=== PATIENT | female | born 1955 | race Caucasian/White ===

== ENCOUNTER 2022-01-03 18:05 | Outpatient (CLI) | payer MEDICAID, SELFPAY ==
--- NOTE | 2022-01-03 | XRR_ITS ---
PROCEDURE INFORMATION: Exam: XR Chest Exam date and time: 01/03/2022 6:14 PM Age: 66 years old Clinical indication: Patient HX: PT C/O shortness of breath and chest pain; Additional info: Shortness of breath, chest pain TECHNIQUE: Imaging protocol: Radiologic exam of the chest. Views: 2 views. COMPARISON: CR Chest 2 views* [id number] 10/28/2016 12:44 PM FINDINGS: Lungs: The lung parenchyma is clear. Pleural spaces: No pneumothorax. No pleural effusion. Heart/Mediastinum: The cardiomediastinal silhouette is within normal limits. Bones/joints: Unremarkable. XR/XR chest 2V* [id number] IMPRESSION: No acute cardiopulmonary abnormality.
== END 2022-01-03 18:06 | disposition home or self-care (01) ==
PROVIDERS: Family Provider Physician Assistant; Visit Provider Family Medicine
DX: R06.02 Shortness of breath (principal); R07.9 Chest pain, unspecified
CPT/HCPCS: 71046

== ENCOUNTER → 2022-02-14 16:08 | Outpatient (BNVA) | payer MEDICAID, SELFPAY | PROVIDERS: Family Provider Physician Assistant; Visit Provider Family Medicine | DX: M25.561 Pain in right knee (principal); M25.562 Pain in left knee | CPT/HCPCS: 73562 ==

== ENCOUNTER → 2022-05-14 14:26 | Outpatient (BNVA) | payer MEDICAID, SELFPAY | PROVIDERS: PCP Family Medicine; Visit Provider Internal Medicine Cardiovascular Disease | DX: I49.3 Ventricular premature depolarization (principal); R00.2 Palpitations; I10 Essential (primary) hypertension | CPT/HCPCS: 93005; 93246; 99204; Q3014 ==

== ENCOUNTER → 2022-06-02 10:53 | Outpatient (BNVA) | payer MEDICAID, SELFPAY | PROVIDERS: Family Provider Physician Assistant; PCP Family Medicine; Visit Provider Specialist | DX: M25.511 Pain in right shoulder (principal); G89.29 Other chronic pain | CPT/HCPCS: 73030; 99204 ==

== ENCOUNTER 2022-07-10 11:28 | Outpatient (CLI) | payer MEDICAID, SELFPAY ==
--- NOTE | 2022-07-10 11:45 | MR_ITS ---
WS: [id number] EXAMINATION: MR shoulder RT wo con* [id number] ORDER DATE: 07/10/2022 11:37 AM COMPARISON: None. HISTORY: right shoulder pain CONTRAST: None. TECHNIQUE: Axial T2 STAR, coronal proton density fat sat, sagittal T2 fat sat, sagittal proton densit y fat sat, axial proton density fat sat, coronal T2 fat sat, and coronal T1 performed. After contrast , axial T1 fat sat, coronal T1 fat sat, and sagittal T1 fat sat were performed. FINDINGS: Exam is limited due to patient motion. Moderate degenerative arthritis AC joint with hypertrophic changes. Mild narrowing of the subacromial space. Slight subacromial spurring. Advanced arthritis glenohumeral joint with hypertrophic spurring . Fluid and edema the AC joint. Small amount of subacromial fluid. Small subcoracoid effusion. Distal supraspinatus is intact with mild thinning. Normal infraspinatus. Normal teres minor. Mild chr onic thinning of the subscapularis tendon which appears intact. Tiny biceps tendon within the bicipit al groove. Hypertrophic changes along the bicipital groove proximally. Chronic appearing irregularity of the glenoid labrum. Advanced narrowing at the glenohumeral articula tion. Normal bone marrow signal in the humerus and glenoid. MR/MR shoulder RT wo con* [id number] IMPRESSION: Some images degraded by patient motion. 1. Advanced degenerative arthritis at the AC joint with fluid and edema. Mild downsloping acromion. 2. Advanced degenerative arthritis glenohumeral joint with hypertrophic change s. Hypertrophic changes along the bicipital groove. 3. Mild chronic thinning of the distal supraspinatus and subscapularis. No hig h-grade rotator cuff tears. 4. Tiny biceps tendon within the bicipital groove. 5. Small subcoracoid effusion.
== END 2022-07-10 11:29 | disposition home or self-care (01) ==
PROVIDERS: PCP Family Medicine; Visit Provider Specialist
DX: S49.90XA Unspecified injury of shoulder and upper arm, unspecified arm, initial encounter (principal); M19.011 Primary osteoarthritis, right shoulder; X58.XXXA Exposure to other specified factors, initial encounter
CPT/HCPCS: 73221; 99204

== ENCOUNTER → 2022-07-22 09:19 | Outpatient (BNVA) | payer MEDICAID, SELFPAY | PROVIDERS: PCP Family Medicine; Visit Provider Internal Medicine Cardiovascular Disease | DX: R00.2 Palpitations (principal) | CPT/HCPCS: 93242 ==

== ENCOUNTER 2022-08-01 09:39 | Outpatient (CLI) | payer MEDICAID, SELFPAY ==
--- NOTE | 2022-08-01 11:00 | USCV_ITS ---
Jeimy Perry Age: 67 Gender: F : 1955 Exam Date: 08/01/2022 10:05 Ordering Phys: Ellen Gorman MD ([email or web address]) Technologist: [place] [facility] [place]: murmur sob BP: 145 / 80 HR: 61 Rhythm: Sinus Technical Quality: Adequate MEASUREMENTS (Male / Female) Normal Values 2D ECHO LV Diastolic Diameter PLAX 3.3 cm 4.2 - 5.9 / 3.9 - 5.3 cm LV Systolic Diameter PLAX 2.3 cm IVS Diastolic Thickness 1.1 cm 0.6 - 1.0 / 0.6 - 0.9 cm IVS Systolic Thickness 1.3 cm LVPW Diastolic Thickness 1.3 cm 0.6 - 1.0 / 0.6 - 0.9 cm LVPW Systolic Thickness 1.5 cm LVOT Diameter 2.0 cm LV Ejection Fraction 2D Teich 46.9 % LV Ejection Fraction MOD 2C 46.5 % LV Ejection Fraction 2C AL 46.5 % LA Diameter 3.3 cm IVC Diameter 1.8 cm M-MODE Aortic Annulus Diameter 3.0 cm LA Ao Ratio MM 1.3 MV E Point Septal Separation 1.8 cm DOPPLER AV Peak Velocity 160.0 cm/s LVOT Peak Velocity 124.0 cm/s AV Area Cont Eq vti 2.7 cm squared AV Area Cont Eq pk 2.4 cm squared MV Area PHT 5.0 cm squared Mitral E to A Ratio 0.9 MV E' Velocity 50.0 cm/s Mitral E to MV E' Ratio 8.6 Mitral E to LV E' Lateral Ratio 8.3 Mitral E to LV E' Septal Ratio 9.0 TR Peak Velocity 134.3 cm/s TR Peak Gradient 7.2 mmHg TV Peak E Velocity 79.0 cm/s Right Atrial Pressure 3.0 mmHg Pulmonary Artery Systolic Pressu 10.2 mmHg RV Acceleration Time 0.1 s FINDINGS Left Ventricle Left ventricle is normal size. LV systolic function is normal with EF of 50-55%. No regional wall motion abnormalities seen. Grade 1 diastolic dysfunction Right Ventricle Normal in size and function Right Atrium Normal in size Left Atrium Normal in size Mitral Valve Moderate mitral annular calcification. Trace mitral regurgitation. Aortic Valve Structurally normal aortic valve. No significant aortic stenosis or regurgitation is seen Tricuspid Valve Mild tricuspid regurgitation. Pulmonary artery systolic pressure is normal. Pulmonic Valve Not well visualized Pericardium Normal Aorta Normal in size IVC Appears to be normal CONCLUSIONS LV systolic function is normal with EF 50 to 55%. Grade 1 diastolic dysfunction Trace mitral regurgitation Mild tricuspid regurgitation No comparison studies are available. Adama Tafoya MD (Electronically Signed) Final Date: 14 August 2022 15:03 S
== END 2022-08-01 09:40 | disposition home or self-care (01) ==
LOC: RAD 09:44
PROVIDERS: PCP Family Medicine; Visit Provider Internal Medicine Cardiovascular Disease
DX: R01.1 Cardiac murmur, unspecified (principal); R06.02 Shortness of breath; I08.1 Rheumatic disorders of both mitral and tricuspid valves
CPT/HCPCS: 93306

== ENCOUNTER → 2022-09-09 12:52 | Outpatient (BNVA) | payer MEDICAID, SELFPAY | PROVIDERS: PCP Family Medicine; Visit Provider Nurse Practitioner Family | DX: I10 Essential (primary) hypertension (principal); I49.3 Ventricular premature depolarization | CPT/HCPCS: 99214 ==

== ENCOUNTER → 2023-03-16 10:06 | Outpatient (BNVA) | payer MEDICAID, SELFPAY | PROVIDERS: PCP Nurse Practitioner Family; Referring Provider Nurse Practitioner Family; Visit Provider Nurse Practitioner | DX: M17.0 Bilateral primary osteoarthritis of knee (principal) | CPT/HCPCS: 20610; 73560; 73565; 99214; J1100; J2795; J3301 ==

== ENCOUNTER → 2023-04-24 08:49 | Outpatient (BNVA) | payer MEDICAID, SELFPAY | PROVIDERS: PCP Nurse Practitioner Family; Visit Provider Internal Medicine Cardiovascular Disease | DX: I49.3 Ventricular premature depolarization (principal); I10 Essential (primary) hypertension; G47.33 Obstructive sleep apnea (adult) (pediatric); Z99.89 Dependence on other enabling machines and devices | CPT/HCPCS: 99214 ==

== ENCOUNTER → 2023-11-03 10:00 | Outpatient (BNVA) | payer MEDICAID, SELFPAY | PROVIDERS: PCP Nurse Practitioner Family; Visit Provider Nurse Practitioner Family | DX: I10 Essential (primary) hypertension (principal); I49.3 Ventricular premature depolarization | CPT/HCPCS: 99214 ==

== ENCOUNTER 2023-11-12 11:59 | Emergency (ER) | payer MEDICAID, SELFPAY ==
[2023-11-12 12:01] VITALS: BP 147/96; PULSE 68; TEMP 37.1; O2SAT 97; BMI 37.7
[2023-11-12 13:30] VITALS: BP 122/72; PULSE 73; O2SAT 97
[2023-11-12] MEDS: aspirin 81 mg Chew Tablet 324 MG PO (13:50)
[2023-11-12 13:52] LABS: Basophils # 0.1 10^3/uL (0.0-0.1); Basophils % 0.6 %; Eosinophils # 0.2 10^3/uL (0.0-0.8); Eosinophils % 1.9 %; Hematocrit 42.9 % (36-47); Lymphocytes # 1.9 10^3/uL (0.8-4.8); Lymphocytes % 20.7 %; Mean Corpuscular HGB Conc 34.3 g/dL (30-55); Mean Corpuscular Hemoglobin 32.3 pg (27-33); Mean Corpuscular Volume 94.3 fl (85-98); Mean Platelet Volume 9.5 fL (7.4-10.4); Monocytes # 0.8 10^3/uL (0.2-0.9); Monocytes % 8.8 %; Neutrophils # 6.29 10^3/uL (1.8-7.7); Neutrophils % 67.1 %; Nucleated Red Blood Cells % 0 %; Platelet Count 256 10^3/cmm (157-399); Red Blood Count 4.55 10^6/uL (3.85-5.65); Red Cell Distribution Width 13.4 % (12.1-15.1); White Blood Count 9.37 10^3/uL (3.29-11.43)
--- NOTE | 2023-11-12 13:52 | XRR_ITS ---
PROCEDURE INFORMATION: Exam: XR Chest Exam date and time: 11/12/2023 2:24 PM Age: 68 years old Clinical indication: Dyspnea; Additional info: Dyspnea/cough TECHNIQUE: Imaging protocol: Radiologic exam of the chest. Views: 1 view. COMPARISON: CR XR chest 2V* [id number] 01/03/2022 6:14 PM FINDINGS: Lungs: Unremarkable. No consolidation. Pleural spaces: Unremarkable. No pleural effusion. No pneumothorax. Heart/Mediastinum: Unremarkable. No cardiomegaly. Bones/joints: Unremarkable. XR/XR chest 1V portable [id number] IMPRESSION: No acute findings.
[2023-11-12 14:05] LABS: Alanine Aminotransferase 48 U/L (0-33); Albumin Level 4.3 g/dL (3.5-5.2); Alkaline Phosphatase 76 U/L (35-105); Anion Gap 17.9 (5-19); Aspartate Amino Transferase 50 U/L (0-32); Blood Urea Nitrogen 14 mg/dL (8-23); Calcium 9.6 mg/dL (8.5-10.5); Carbon Dioxide 19 mmol/L (22-29); Chloride 104 mmol/L (98-107); Creatinine Clr Calc Pharmacy 67.1708; Globulin 2.8 g/dL (1.3-4.6); Glomerular Filtration Rate 159.2 mL/min (90-130); Glucose 150 mg/dL (65-115); Osmolality Calculated 287 mOsm/kg (285-295); Potassium 3.9 mmol/L (3.5-5.1); Sodium 137 mmol/L (136-145); Total Bilirubin 0.8 mg/dL (0.15-1.2); Total Protein 7.1 g/dL (6.6-8.7)
[2023-11-12 14:07] LABS: Troponin(5th) Baseline < 6 ng/L (0-10)
--- NOTE | 2023-11-12 14:20 | ED_ITS ---
HPI - Chest Pain 2 General: Chief Complaint: Chest Pain Stated Complaint: chest pain, Time Seen by Provider: 11/12/23 13:26 Source: patient Mode of arrival: ambulatory History of Present Illness: 68-year-old female presents to the emerg ency room with complaints of shortness of breath. She also has some vague chest discomfort bilaterally in the chest. She cannot really tell me anything that exacerbates or relieves the chest pain. She does state that when she lays down her shortness of breath gets worse. She has no known history of coronary disease she does have sleep apnea and uses CPAP at night. She denies any fever sweats or chills. She is rather vague about her symptoms. MD complaint: chest pain Onset (ago): day(s) Pain radiation: none Severity: mild Relieving factors: nothing Exacerbating factors: nothing Associated symptoms: Deny abdominal pain, diaphoresis, dyspnea, fever(s), leg edema, nausea, palpitations, sense of impending doom, syncope or vomiting Review of Systems 2 Const: Denies: fever(s), chills or diaphoresis Card: Denies: chest pain, palpitations or syncope Resp: Denies: dyspnea GI: Denies: abdominal pain, nausea or vomiting : Denies: dysuria, urinary frequency or urinary urgency Musc: Denies: neck pain or back pain Skin/Breast: Denies: rash PFSH ED 2 PFSH: Medical History Osteoarthritis HTN (hypertension) ANITA (obstructive sleep apnea) No pertinent past medical history Surgical History S/P cataract extraction S/P tympanotomy with insertion of tube No pertinent past surgical history Family History Other CAD (coronary artery disease) Social History Smoking and tobacco/nicotine status: never used tobacco/nicotine Physical Exam 2 Const: COMMON NORMALS: no acute distress GENERAL APPEARANCE: cooperative and comfortable ORIENTATION/CONSCIOUSNESS: Yes awake, Yes oriented to person, Yes oriented to place and Yes oriented to time HENMT: COMMON NORMALS: normocephalic, atraumatic and hearing grossly normal bilaterally HEAD & SCALP: normocephalic and atraumatic Resp: COMMON NORMALS: normal respiratory effort, No retractions, No use of accessory muscles and clear to auscultation bilaterally AUSCULTATION: clear to auscultation bilaterally Cardio: COMMON NORMALS: regular rate, regular rhythm and No murmurs present (Cardio) RATE: regular rate RHYTHM: regular rhythm GI: COMMON NORMALS: Soft to palpation and No hepatosplenomegaly present A USCULTATION: Yes normoactive bowel sounds PALPATION: Yes Soft to palpation, No Tenderness to palpation present (GI), No Guarding due to palpation present (GI) and Yes No hepatosplenomegaly present Extremity: COMMON NORMALS: normal to inspection, capillary refill normal, no clubbing, cyanosis or edema, no calf tenderness and no pedal edema Neuro: SENSORIUM/ORIENTATION: Yes oriented to person, Yes oriented to place and Yes oriented to time Skin: COMMON NORMALS: no rashes or lesions noted GENERAL SKIN EXAM: no rashes or lesions noted Course 2 Vital Signs: Vital signs: Vital Signs Temperature 98.7 F 11/12/23 12:01 Pulse Rate 65 11/12/23 14:30 Blood Pressure 152/73 11/12/23 14:30 Pulse Oximetry 97 11/12/23 14:30 Oxygen Delivery Me thod Room Air 11/12/23 14:30 MDM - Chest Pain Medical Decision Making EKG does not show any acute for abnormalities. She does have frequent PVCs. Will arrange for 72-hour Holter monitor sinus otherwise a normal sinus rhythm. Cardiac enzymes negative. Will discharge patient home. Started on omeprazole 40 mg daily and follow-up with primary care return if has further problems. Medical Records I reviewed the patient's medical records. Lab Data I reviewed the patient's lab results. 11/12/23 13:31 11/12/23 13:31 Radiology Impressions Chest X-Ray 11/12/23 13:52 IMPRESSION: No acute findings. Laboratory Results WBC 9.37 10^3/uL (3.29-11.43) 11/12/23 13:31 RBC 4.55 10^6/uL (3.85-5.65) 11/12/23 13:31 Hgb 14.70 g/dL (11.27-16.99) 11/12/23 13:31 Hct 42.9 % (36-47) 11/12/23 13:31 MCV 94.3 fl (85-98) 11/12/23 13:31 MCH 32.3 pg (27-33) 11/12/23 13:31 MCHC 34.3 g/dL (30-55) 11/12/23 13:31 RDW 13.4 % (12.1-15.1) 11/12/23 13:31 Plt Count 256 10^3/cmm (157-399) 11/12/23 13:31 MPV 9.5 fL (7.4-10.4) 11/12/23 13:31 Neut % (Auto) 67.1 % 11/12/23 13:31 Lymph % (Auto) 20.7 % 11/12/23 13:31 Norman % (Auto) 8.8 % 11/12/23 13:31 Eos % (Auto) 1.9 % 11/12/23 13:31 Baso % (Auto) 0.6 % 11/12/23 13:31 Neut # (Auto) 6.29 10^3/uL (1.8-7.7) 11/12/23 13:31 Lymph # (Auto) 1.9 10^3/uL (0.8-4.8) 11/12/23 13:31 Norman # (Auto) 0.8 10^3/uL (0.2-0.9) 11/12/23 13:31 Eos # (Auto) 0.2 10^3/uL (0.0-0.8) 11/12/23 13:31 Baso # (Auto) 0.1 10^3/uL (0.0-0.1) 11/12/23 13:31 Nucleated RBC % (auto) 0 % 11/12/23 13:31 Nucleated RBCs # 0.0 /100WBC 11/12/23 13:31 Sodium 137 mmol/L (136-145) 11/12/23 13:31 Potassium 3.9 mmol/L (3.5-5.1) 11/12/23 13:31 Chloride 104 mmol/L (98-107) 11/12/23 13:31 Carbon Dioxide 19 mmol/L (22-29) L 07/04/24 13:31 Anion Gap 17.9 (5-19) 11/12/23 13:31 BUN 14 mg/dL (8-23) 11/12/23 13:31 Creatinine 0.4 mg/dL (0.5-0.9) L 11/12/23 13:31 GFR Calculation 159.2 mL/min (90-130) H 11/12/23 13:31 Glucose 150 mg/dL (65-115) H 11/12/23 13:31 Calculated Osmolality 287 mOsm/kg (285-295) 11/12/23 13:31 Calcium 9.6 mg/dL (8.5-10.5) 11/12/23 13:31 Total Bilirubin 0.8 mg/dL (0.15-1.2) 11/12/23 13:31 AST 50 U/L (0-32) H 11/12/23 13:31 ALT 48 U/L (0-33) H 11/12/23 13:31 Alkaline Phosphatase 76 U/L (35-105) 11/12/23 13:31 Troponin T Baseline < 6 ng/L (0-10) 11/12/23 13:31 Troponin T 120 Minute 6.00 ng/L (0-10) 11/12/23 15:14 Delta Troponin T 0.10275 ABS# (0-10) 11/12/23 15:14 Total Protein 7.1 g/dL (6.6-8.7) 11/12/23 13:31 Albumin 4.3 g/dL (3.5-5.2) 11/12/23 13:31 Globulin 2.8 g/dL (1.3-4.6) 11/12/23 13:31 All radiology interpretation(s) finalized by discharge Discharge Plan Discharge Patient Disposition: Home Clinical Impression: Palpitations, Atypical chest pain Condition: Stable Prescriptions: New omeprazole 40 mg capsule,delayed release(DR/EC) 40 mg PO DAILY 56 Days Qty: 30 0RF No Action multivitamin Tablet 1 tab PO DAILY (DME) hinged knee brace See Rx Instructions .Route .MEDSUPPLY Qty: 1 0RF Rx Instructions: As directed (DME) hinged knee brace See Rx Instructions .Route .MEDSUPPLY Qty: 1 0RF Rx Instructions: As directed meloxicam 7.5 mg tablet 7.5 mg PO DAILY Qty: 30 2RF metoprolol tartrate 25 mg tablet 12.5 mg PO BID Qty: 90 3RF hydrochlorothiazide 12.5 mg tablet 12.5 mg PO DAILY Qty: 90 3RF Discharge Orders: Discharge ED (Routine); Ordered 11/12/23 Ordered By: Marvin Plummer Referrals: Minal Castelan, WATCH INSPECTOR [Primary Care Provider] - Discharge Diet: Usual diet Discharge Activity: Increase activity as tolerated Patient Instructions: Opioid Safety, Pain Management Activity Restrictions/Additional Instructions: Thank you for choosing [facility] for your healthcare needs today. It is very important that you follow up as instructed or that you return to the Emergency Department should you have concerns or if your condition changes or worsens in any way. You were seen today with complaints of chest discomfort. Your EKG showed PVCs but there is no evidence of acute coronary syndrome and cardiac enzymes were otherwise negative. Will set you up for a Holter monitor and follow-up with your primary care doctor Coding Level of Care Code ED Shelter Director for Cristina Garvey
[2023-11-12 14:30] VITALS: BP 152/73; PULSE 65; O2SAT 97
--- NOTE | 2023-11-12 14:56 | ECG_ITS ---
[facility] Test Date: 2023-11-12 Pat Name: Jeimy Perry Department: Room: Gender: Female Continuous Improvement Manager: : 1955 Requested By: Marvin Hook Order Number: [id number] Jossue MD: Adama Tafoya M.D. Measurements Intervals [place] Rate: 72 P: 0 [place]: 0 QRS: 15 QRSD: 86 T: 49 QT: 410 QTc: 451 Interpretive Statements SINUS RHYTHM WITH FREQUENT PVCs Compared to ECG 11/12/2023 13:57:52 Aberrant conduction of supraventricular beat(s) now present T-wave abnormality still present Electronically Signed On 11-12-2023 20:22:52 CDT by Adama Tafoya M.D. [id number]
[2023-11-12 15:42] LABS: Troponin 5 2HR Delta 0.00001 ABS# (0-10)
--- NOTE | 2023-11-12 15:42 | ECG_ITS ---
[facility] Test Date: 2023-11-12 Pat Name: Jeimy Perry Department: Room: Gender: Female Otr Van Cdl Truck Driver: : 1955 Requested By: Marvin Hook Order Number: [id number] Jossue MD: Adama Tafoya M.D. Measurements Intervals [place] Rate: 77 P: 28 [place]: 184 QRS: 2 QRSD: 93 T: 29 QT: 401 QTc: 456 Interpretive Statements SINUS RHYTHM WITH OCCASIONAL VENTRICULAR PREMATURE COMPLEXES NONSPECIFIC T-WAVE ABNORMALITY Compared to ECG 10/28/2016 12:37:09 Ventricular premature complex(es) now present T-wave abnormality now present Sinus bradycardia no longer present Electronically Signed On 11-12-2023 20:23:14 CDT by Adama Tafoya M.D. [id number]
--- NOTE | 2023-11-12 16:28 | DCPLANNER ---
messaged heart/lung for er f/u
[2023-11-12 16:30] VITALS: BP 119/68; PULSE 71; RESP 17; O2SAT 97
== END 2023-11-12 16:31 | disposition home or self-care (01) ==
PROVIDERS: Emergency Provider Family Medicine; PCP Nurse Practitioner Family
DX: R00.2 Palpitations (principal); R07.89 Other chest pain; I10 Essential (primary) hypertension
CPT/HCPCS: 71045; 80053; 84484; 85025; 93005; 99285

== ENCOUNTER → 2023-12-14 11:09 | Outpatient (BNVA) | payer MEDICAID, SELFPAY | PROVIDERS: PCP Nurse Practitioner Family; Referring Provider Family Medicine; Visit Provider Internal Medicine Cardiovascular Disease | DX: R06.02 Shortness of breath (principal); I49.1 Atrial premature depolarization; I49.3 Ventricular premature depolarization; I47.10 Supraventricular tachycardia, unspecified | CPT/HCPCS: 93242 ==

== ENCOUNTER → 2024-03-23 14:17 | Outpatient (BNVA) | payer MEDICAID, SELFPAY | PROVIDERS: PCP Nurse Practitioner Family; Visit Provider Specialist | DX: M25.561 Pain in right knee (principal); M25.562 Pain in left knee; G89.29 Other chronic pain; M17.0 Bilateral primary osteoarthritis of knee | CPT/HCPCS: 20610; 73560; 73565; 99214; J1100; J2795; J3301 ==

== ENCOUNTER → 2025-04-12 08:45 | Outpatient (BNVA) | payer MEDICAID, SELFPAY | PROVIDERS: PCP Nurse Practitioner Family; Visit Provider Nurse Practitioner Family | DX: I10 Essential (primary) hypertension (principal) | CPT/HCPCS: 80053; 80061; 84443; 85025 ==

== ENCOUNTER → 2025-05-10 09:40 | Outpatient (BNVA) | payer MEDICAID, SELFPAY | PROVIDERS: PCP Nurse Practitioner Family; Visit Provider Nurse Practitioner Family | DX: R79.89 Other specified abnormal findings of blood chemistry (principal); R73.09 Other abnormal glucose | CPT/HCPCS: 80053; 83036; 84439; 84443; 84480 ==